=== PATIENT | female | born 1970 | race Caucasian/White ===

== ENCOUNTER 2019-06-21 20:35 | Emergency (ER) | payer BC ==
[~2019-06-21] VITALS: Ht 165.1 cm; Wt 99.8 kg
[2019-06-21 21:20] LABS: Basophils # (auto) 0.1 uL; Basophils % (auto) 0.6 % (0.0-2.0); Eosinophils # (auto) 0.1 uL; Eosinophils % (auto) 0.5 % (0.0-7.0); Hematocrit 44.8 % (36.0-46.0); Hemoglobin 14.8 g/dL (12.2-16.2); Lymphocytes # (auto) 2.6 uL; Lymphocytes % (auto) 26.3 % (10.0-50.0); Mean Corpuscular Volume 84.6 fL (80.0-100.0); Monocytes # (auto) 0.7 uL; Monocytes % (auto) 7.4 % (0.0-12.0); Neutrophils # (auto) 6.3 uL; Neutrophils % (auto) 65.2 % (37.0-80.0); Platelet Count (auto) 297 10^3/uL (140-450); Red Blood Cells 5.29 10^6/uL (4.0-5.20); Red Cell Distribution Width 14.4 % (11.8-14.3); White Blood Cell 9.7 10^3/uL (4.4-10.8)
[2019-06-21 21:38] LABS: Alanine Aminotransferase 21 U/L (13-56); Albumin 3.8 g/dL (3.4-5.0); Anion Gap 7 (5-15); Aspartate Aminotransferase 9 U/L (15-37); BUN/Creatinine Ratio 11.5; Blood Urea Nitrogen 11 mg/dL (7-18); Calcium 9.2 mg/dL (8.5-10.1); Carbon Dioxide 28 mmol/L (21-32); Chloride 104 mmol/L (98-107); GFR African American 80 mL/min; GFR Non-African American 66 mL/min; Glucose 121 mg/dL (74-106); Potassium 3.6 mmol/L (3.5-5.1); Sodium 139 mmol/L (136-145)
[2019-06-21 21:42] LABS: Alkaline Phosphatase 84 U/L (45-117); Bilirubin, Total 0.9 mg/dL (0.2-1.0); Total Protein 7.9 g/dL (6.4-8.2)
[2019-06-22] MEDS ORDERED: ASPirin 81 mg TAB PO ONE (07:30)
[2019-06-22 08:00] VITALS: BP 120/67
[2019-06-22 08:06] LABS: Urine Bacteria NONE SEEN /hpf (None Seen); Urine Blood Negative /uL (Negative); Urine Mucus FEW (None Seen); Urine Specific Gravity 1.023 (1.001-1.035); Urine WBC 3 /hpf (0 - 5)
== END 2019-06-22 08:26 | disposition home or self-care (01) ==
LOC: ER 20:44
DX: R07.89 Other chest pain (principal); N39.0 Urinary tract infection, site not specified; Z88.2 Allergy status to sulfonamides
CPT/HCPCS: 36415; 80053; 81001; 84484; 85025; 93005

== ENCOUNTER → 2021-02-11 | Outpatient (CLI) | payer BC ==
[2021-02-11 11:12] LABS: Follicle Stimulating Hormone 40.73 IU/L (SEE BELOW); Leuteinizing Hormone 23.9 IU/L
== END | disposition home or self-care (01) ==
LOC: LAB 09:53
PROVIDERS: ATTEND Obstetrics & Gynecology
DX: N95.1 Menopausal and female climacteric states (principal)
CPT/HCPCS: 36415; 82670; 83001; 83002; 84403; 84443

== ENCOUNTER 2021-07-17 16:09 | Emergency (ER) | payer BC, OTHER ==
[~2021-07-17] VITALS: Ht 165.1 cm; Wt 107.5 kg
[2021-07-17 18:32] LABS: Basophils # (auto) 0 10 ^3/uL (0-0.2); Basophils % (auto) 0.5 % (0.0-2.0); Eosinophils # (auto) 0.1 10 ^3/uL (0-0.8); Eosinophils % (auto) 1.5 % (0.0-7.0); Hematocrit 40.5 % (36.0-46.0); Hemoglobin 13.7 g/dL (12.2-16.2); Mean Corpuscular Hemoglobin 27.9 pg (28.0-32.0); Mean Corpuscular Hgb Conc. 33.7 g/dL (32.0-36.0); Mean Corpuscular Volume 82.8 fL (80.0-100.0); Monocytes # (auto) 0.6 10 ^3/uL (0-1.3); Monocytes % (auto) 8.2 % (0.0-12.0); Neutrophils % (auto) 59.8 % (37.0-80.0); Red Cell Distribution Width 14.3 % (11.8-14.3); White Blood Cell 6.7 10^3/uL (4.4-10.8)
[2021-07-17 18:55] LABS: Chloride 106 mmol/L (98-107); Potassium 3.8 mmol/L (3.5-5.1); Sodium 139 mmol/L (136-145)
[2021-07-17 19:04] LABS: Alanine Aminotransferase 20 U/L (13-56); Albumin 3.7 g/dL (3.4-5.0); Alkaline Phosphatase 101 U/L (45-117); Anion Gap 6 (5-15); Aspartate Aminotransferase 14 U/L (15-37); BUN/Creatinine Ratio 18.6; Bilirubin, Total 0.5 mg/dL (0.2-1.0); Blood Urea Nitrogen 13 mg/dL (7-18); Calcium 8.9 mg/dL (8.5-10.1); Carbon Dioxide 27 mmol/L (21-32); GFR African American 114 mL/min; GFR Non-African American 94 mL/min; Glucose 82 mg/dL (74-106); Total Protein 7.8 g/dL (6.4-8.2)
[2021-07-17 20:39] VITALS: BP 133/71
== END 2021-07-17 20:40 | disposition home or self-care (01) ==
LOC: ER 16:09
DX: K29.70 Gastritis, unspecified, without bleeding (principal); R07.89 Other chest pain; Z88.0 Allergy status to penicillin; Z88.1 Allergy status to other antibiotic agents; Z88.2 Allergy status to sulfonamides
CPT/HCPCS: 36415; 71046; 80053; 84484; 85025; 93005

== ENCOUNTER 2024-01-31 20:30 | Emergency (ER) | payer BC, OTHER ==
[~2024-01-31] VITALS: Ht 165.1 cm; Wt 104.0 kg
[2024-01-31 21:42] LABS: Basophils # (auto) 0.1 10 ^3/uL (0-0.2); Basophils % (auto) 0.8 % (0.0-2.0); Eosinophils # (auto) 0.2 10 ^3/uL (0-0.8); Eosinophils % (auto) 2.4 % (0.0-7.0); Hematocrit 40.8 % (36.0-46.0); Hemoglobin 13.3 g/dL (12.2-16.2); Lymphocytes # (auto) 2.9 10 ^3/uL (0.4-5.4); Lymphocytes % (auto) 37.2 % (10.0-50.0); Mean Corpuscular Hemoglobin 27.4 pg (28.0-32.0); Mean Corpuscular Hgb Conc. 32.6 g/dL (32.0-36.0); Mean Corpuscular Volume 83.9 fL (80.0-100.0); Monocytes # (auto) 0.5 10 ^3/uL (0-1.3); Monocytes % (auto) 6.5 % (0.0-12.0); Neutrophils # (auto) 4.1 10 ^3/uL (1.6-8.6); Neutrophils % (auto) 53.1 % (37.0-80.0); Nucleated Red Blood Cells % 0.1 %; Red Blood Cells 4.86 10^6/uL (4.0-5.20); Red Cell Distribution Width 14.8 % (11.8-14.3); White Blood Cell 7.7 10^3/uL (4.4-10.8)
[2024-01-31 21:59] LABS: INR 0.96 (0.9-1.15); Partial Thromboplastin Time 22.5 SEC (24.5-34.5); Prothrombin Time 10.1 sec (9.3-11.8)
[2024-01-31 22:00] LABS: Alanine Aminotransferase 18 U/L (7-40); Albumin 4.4 g/dL (3.2-4.8); Alkaline Phosphatase 104 U/L (46-116); Anion Gap 8 (5-15); Aspartate Aminotransferase 21 U/L (13-40); BUN/Creatinine Ratio 10.5 (10.0-20.0); Bilirubin, Total 0.3 mg/dL (0.2-1.0); Blood Urea Nitrogen 9 mg/dL (9-23); Calcium 9.4 mg/dL (8.5-10.1); Carbon Dioxide 28 mmol/L (20-30); Chloride 104 mmol/L (98-107); Glucose 162 mg/dL (74-106); Sodium 140 mmol/L (136-145); Total Protein 7.2 g/dL (5.7-8.2)
[2024-02-01 00:40] VITALS: BP 126/65; PULSE 98; RESP 16; O2SAT 99
== END 2024-02-01 00:47 | disposition home or self-care (01) ==
LOC: ER 20:30
DX: K64.8 Other hemorrhoids (principal); R10.2 Pelvic and perineal pain; K91.89 Other postprocedural complications and disorders of digestive system; K92.2 Gastrointestinal hemorrhage, unspecified; Z88.1 Allergy status to other antibiotic agents; Z88.2 Allergy status to sulfonamides
CPT/HCPCS: 36415; 71045; 74176; 80053; 83880; 84484; 84702; 85025; 85610; 85730